=== PATIENT | male | born 1990 | race Caucasian/White ===

== ENCOUNTER 2021-08-15 12:23 | Emergency (ER) | payer MEDICAID ==
[~2021-08-15] VITALS: Ht 172.7 cm; Wt 154.0 kg
[2021-08-15 12:27] VITALS: BP 168/82
[2021-08-15] MEDS ORDERED: NAPR-681 PO (12:38)
== END 2021-08-15 13:40 | disposition home or self-care (01) ==
LOC: ER 12:23
DX: E11.9 Type 2 diabetes mellitus without complications (principal); S00.93XA Contusion of unspecified part of head, initial encounter; W18.30XA Fall on same level, unspecified, initial encounter; Y93.89 Activity, other specified; Y92.89 Other specified places as the place of occurrence of the external cause; Y99.8 Other external cause status
CPT/HCPCS: 99282